=== PATIENT | female | born 1990 | race Caucasian/White ===

== ENCOUNTER 2016-03-04 08:38 | Emergency (ER) | payer OTHER ==
[~2016-03-04] VITALS: Ht 162.6 cm; Wt 111.0 kg
[~2016-03-04 08:38] MED LIST: ENDOCET 5-3251 EACH PO; IBUPROFEN800 MG PO; NOHOMEMEDS; PRENATAL TABLE1 EAC3 PO
[2016-03-04 11:11] LABS: ADD MIUA? YES; BILIRUBIN NEGATIVE; BLOOD NEGATIVE; COLOR YELLOW ((YELLOW)); GLUCOSE (STRIP) NEGATIVE; KETONES NEGATIVE; LEUKOCYTES MODERATE; NITRITE NEGATIVE; PH, URINE 5.5 (5-8); PROTEIN (STRIP) NEGATIVE; SPECIFIC GRAVITY 1.022 (1.000-1.030); UROBILINOGEN 0.2 MG/DL (0.2-1.0)
[2016-03-04] MEDS ORDERED: MOTRIN800 MG PO (11:11)
[2016-03-04] MEDS ORDERED: FLEXERIL10 MG PO (11:11)
[2016-03-04 11:14] VITALS: BP 112/66
[2016-03-04 11:43] LABS: RED BLOOD CELLS NONE SEEN /HPF (0-5)
[2016-03-04 11:44] LABS: BACTERIA 2+; CASTS NONE SEEN /LPF; CRYSTALS NONE SEEN; EPITHELIAL CELLS 2+; MUCUS NONE SEEN; WHITE BLOOD CELLS NONE SEEN /HPF (0-5)
== END 2016-03-04 11:40 | disposition home or self-care (01) ==
LOC: EME 08:38
PROVIDERS: Nurse Practitioner Family
DX: S39.012A Strain of muscle, fascia and tendon of lower back, initial encounter (principal)
CPT/HCPCS: 72100; 81003; 99281; 99284

== ENCOUNTER 2017-02-23 19:06 | Emergency (ER) | payer OTHER ==
[~2017-02-23 19:06] MED LIST changes: +FLEXERIL10 MG PO; +MOTRIN800 MG PO
== END 2017-02-23 19:28 | disposition left against medical advice (07) ==
LOC: EME 19:06
DX: K08.89 Other specified disorders of teeth and supporting structures (principal); Z53.21 Procedure and treatment not carried out due to patient leaving prior to being seen by health care provider